=== PATIENT | female | born 1990 | race Caucasian/White ===

== ENCOUNTER 2022-07-29 08:16 | Day surgery (SDC) | payer OTHER ==
[2022-07-24 10:51] VITALS: BMI 29.7
[2022-07-28 15:22] LABS: Hemoglobin 13.9 g/dL (12.0-15.5); Mean Corpuscular HGB CONC 34.4 g/dL (32.0-36.0); Mean Corpuscular Hemoglobin 32.3 pg (27.0-33.0); Mean Platelet Volume 10.3 fl (7.4-10.4); Platelet Count 312 10x3/uL (150-450); RBC Distribution Width 12.1 % (11.5-14.5); White Blood Cell (WBC) Count 7.6 10x3/uL (3.5-10.5)
[2022-07-28 16:05] LABS: BHCG - Serum Negative (NEGATIVE); Pregs Control Background? CLEAR/WHITE (CLR/WHITE); Pregs Control Bar Appear? YES (CONTROL BAR)
[2022-07-29] MEDS ORDERED: Gabapentin 300 MG CAP ONE (08:27)
[2022-07-29] MEDS ORDERED: CeleCOXIB 100 MG CAP ONE (08:27)
[2022-07-29] MEDS ORDERED: Famotidine/PF 20 mg/2ml Vial ONE (08:28)
[2022-07-29] MEDS ORDERED: Scopolamine 1.5 mg/72 hour Patch ONE (09:40)
[2022-07-29] MEDS ORDERED: Bupivacaine HCl 0.5%/Epinephrine 1:200,000/PF 30 ml Vial ONE (10:04)
[2022-07-29] MEDS ORDERED: SUGAMMADEX SODIUM 200 MG/2 ML VIAL ONE (10:11)
[2022-07-29] MEDS ORDERED: HYDROmorphone 0.5 MG/0.5 ML SYRINGE ONE (10:11)
[2022-07-29] MEDS ORDERED: CEFAZOLIN 2 GM VIAL ONE (10:15)
[2022-07-29] MEDS ORDERED: Dexamethasone 4 mg/ml Vial ONE (10:22)
[2022-07-29] MEDS ORDERED: Midazolam HCl 2 mg/2 ml Vial ONE (10:22)
[2022-07-29] MEDS ORDERED: Rocuronium Bromide 10 MG/ML (10ML VIAL) ONE (10:22)
[2022-07-29] MEDS ORDERED: Ondansetron PF 4 MG/2 ML Vial ONE (10:22)
[2022-07-29] MEDS ORDERED: Fentanyl 100 MCG/2 ML VIAL ONE (10:22)
[2022-07-29] MEDS ORDERED: PROPOFOL 20 ML ONE (10:22)
[2022-07-29] MEDS ORDERED: Lidocaine 1% PF 5 ML VIAL ONE (10:23)
[2022-07-29] MEDS ORDERED: Ketorolac Tromethamine 30 MG/ML VIAL ONE (10:23)
[2022-07-29] MEDS ORDERED: Meperidine HCl/PF 25 MG/ML VIAL ONE (12:10)
== END 2022-07-29 16:35 | disposition home or self-care (01) ==
LOC: CSHSDC 08:16
PROVIDERS: ATTEND Student in an Organized Health Care Education/Training Program
PROC: 0UT74ZZ Resection of Bilateral Fallopian Tubes, Percutaneous Endoscopic Approach (ICD-10-PCS; principal; 2022-07-29)
PROC: 0UT94ZZ Resection of Uterus, Percutaneous Endoscopic Approach (ICD-10-PCS; principal; 2022-07-29)
DX: N80.03 Adenomyosis of the uterus (principal); N87.9 Dysplasia of cervix uteri, unspecified; N88.8 Other specified noninflammatory disorders of cervix uteri; Z91.013 Allergy to seafood; K21.9 Gastro-esophageal reflux disease without esophagitis; Z79.899 Other long term (current) drug therapy
CPT/HCPCS: 36415; 84703; 85027; 86850; 86900; 86901; 88307; J1100; J1170; J1885; J2175; J2250; J2405; J2704; J3010; S0028